=== PATIENT | male | born 1960 | race African-American/Black ===

== ENCOUNTER 2017-12-09 15:08 | Emergency (ER) | payer MEDICAID, OTHER ==
[~2017-12-09] VITALS: Ht 175.3 cm; Wt 74.8 kg
[2017-12-09 15:15] VITALS: BP 154/106
== END 2017-12-09 18:15 | disposition home or self-care (01) ==
LOC: ER 15:08
DX: H61.21 Impacted cerumen, right ear (principal); F12.90 Cannabis use, unspecified, uncomplicated; F17.210 Nicotine dependence, cigarettes, uncomplicated
CPT/HCPCS: 69209